=== PATIENT | male | born 1945 | race Caucasian/White ===

== ENCOUNTER → 2017-01-29 | Outpatient (CLI) | payer MEDICARE, OTHER ==
[~2017-01-29] MED LIST: ALLOPURINOL100 MG PO; CLARITIN10 M2 PO; ENALAPRIL MALEAT5 MG PO; FENOFIBRATE200 MG PO; FLONASE 0.05% N16 GM; FLOVENT DISKUS50 MCG INH; HYDROCORT; IMDUR ER TAB 3030 MG PO; LOPRESSOR 25 MG25 MG PO; MAGIC MOUTHWASH PO; METOPROLOL SUCC25 MG PO; RANITIDINE HCL300 MG PO; ZETIA10 MG PO
== END ==
LOC: RAD 11:01
DX: I10 Essential (primary) hypertension (principal)
CPT/HCPCS: 71020

== ENCOUNTER → 2021-07-13 | Outpatient (CLI) | payer MEDICARE, OTHER | LOC: EXRD 07-11 09:30 | DX: Z85.528 Personal history of other malignant neoplasm of kidney (principal); R93.2 Abnormal findings on diagnostic imaging of liver and biliary tract; K76.0 Fatty (change of) liver, not elsewhere classified; K80.20 Calculus of gallbladder without cholecystitis without obstruction | CPT/HCPCS: 76700 ==

== ENCOUNTER → 2021-10-19 | Outpatient (CLI) | payer MEDICARE, OTHER | LOC: EXRD 10-16 09:00 | DX: K76.0 Fatty (change of) liver, not elsewhere classified (principal); K80.20 Calculus of gallbladder without cholecystitis without obstruction | CPT/HCPCS: 76700 ==

== ENCOUNTER → 2021-11-17 | Outpatient (CLI) | payer MEDICARE, OTHER ==
[~2021-11-17] MED LIST changes: +OMNICEF 300 MG300 MG PO
== END ==
LOC: EXRD 11:39
DX: J20.9 Acute bronchitis, unspecified (principal); Z86.16 Personal history of COVID-19; R91.8 Other nonspecific abnormal finding of lung field
CPT/HCPCS: 71046

== ENCOUNTER 2021-11-21 10:13 | Emergency (ER) | payer MEDICARE, OTHER ==
[~2021-11-21 10:13] MED LIST changes: -OMNICEF 300 MG300 MG PO
[2021-11-21 12:22] LABS: HEMOGLOBIN 16.2 gm/dl (14.0-17.5); RED BLOOD COUNT 5.04 M/UL (4.20-5.50)
[2021-11-21 12:52] LABS: BUN/CREATININE RATIO 17 (0-10)
[2021-11-21] MEDS ORDERED: OMNICEF 300 MG300 MG PO (13:18)
== END 2021-11-21 14:02 | disposition home or self-care (01) ==
LOC: ER1 10:13
PROVIDERS: Student in an Organized Health Care Education/Training Program
DX: J18.9 Pneumonia, unspecified organism (principal); I48.91 Unspecified atrial fibrillation; E78.5 Hyperlipidemia, unspecified; I10 Essential (primary) hypertension; F17.210 Nicotine dependence, cigarettes, uncomplicated; Z86.73 Personal history of transient ischemic attack (TIA), and cerebral infarction without residual deficits; Z85.528 Personal history of other malignant neoplasm of kidney; Z95.1 Presence of aortocoronary bypass graft
CPT/HCPCS: 71045; 80053; 85025; 99285